=== PATIENT | male | born 1990 | race African-American/Black ===

== ENCOUNTER 2024-04-04 07:02 | Emergency (ER) | payer MEDICAID ==
[~2024-04-04] VITALS: Ht 182.9 cm; Wt 60.4 kg
[~2024-04-04 07:02] MED LIST: OMEP20TA PO; PROC10TA6 PO
[2024-04-04 07:22] VITALS: PULSE 68; RESP 16; O2SAT 96
--- NOTE | 2024-04-04 07:25 | ED.PDOC ---
History of Present Illness HPI Comments 33-year-old male presents to the ER with no prior history associated chief complaint of nausea. Patient reports he woke up this morning and felt nauseous with result and no symptoms now. Patient wanted to take the day off of work. Denies chills, fever, N/V/D, CP, SOB or other associated symptoms, modifiers, or recent injuries at this time. Chief Complaint: Nausea/Vomiting Time Seen by MD: 07:15 Reviewed Notes: Nurses Notes, Medications, Allergies Allergies: Coded Allergies: NO KNOWN ALLERGIES (Unverified , 08/09/23) Home Meds Active Scripts Omeprazole (Gnp Omeprazole) 20 Mg Tab, 1 TAB PO BID for 15 Days, #30 TAB 1 Refill Prov:SAPNA MARAVILLA MD 08/09/23 Prochlorperazine Maleate (Compazine) 10 Mg Tb, 1 TAB PO TID for 5 Days, #15 TAB 3 Refills Prov:SAPNA MARAVILLA MD 08/09/23 Information Source: Patient Mode of Arrival: Ambulatory Severity: Moderate Timing: Minutes Duration: Since onset, Minutes Prehospital treatment: None Past Medical History PAST MEDICAL HISTORY: Denies Surgical History: Denies all surgeries Family History Family History: Reviewed,noncontributory to illness, Unknown Social History Smoker: Non-Smoker Alcohol: Denies ETOH Use Drugs: Denies Drug Use Lives In: Home Constitutional: denies: chills, diaphoresis, fatigue, fever, malaise, sweats, weakness, others EENTM: denies: blurred vision, double vision, ear bleeding, ear discharge, ear drainage, ear pain, ear ringing, eye pain, eye redness, hearing loss, mouth pain, mouth swelling, nasal discharge, nose bleeding, nose congestion, nose pain, photophobia, tearing, throat pain, throat swelling, voice changes, others Respiratory: denies: cough, hemoptysis, orthopnea, SOB at rest, shortness of breath, SOB with excertion, stridor, wheezing, others Cardiovascular: denies: chest pain, dizzy spells, diaphoresis, Dyspnea on exertion, edema, irregular heart beat, left arm pain, lightheadedness, palpitations, PND, syncope, others Gastrointestinal: reports: nausea; denies: abdomen distended, abdominal pain, blood streaked bowels, constipated, diarrhea, dysphagia, difficulty swallowing, hematemesis, melena, poor appetite, poor fluid intake, rectal bleeding, rectal pain, vomiting, others Genitourinary: denies: burning, dysuria, flank pain, frequency, hematuria, in continence, penile discharge, penile sore, pain, testicle pain, testicle swelling, urgency, others Neurological: denies: dizziness, fainting, headache, left sided numbness, left sided weakness, numbness, paresthesia, pre-existing deficit, right sided numbness, right sided weakness, seizure, speech problems, tingling, tremors, weakness, others Musculoskeletal: denies: back pain, gout, joint pain, joint swelling, muscle pain, muscle stiffness, neck pain, others Integumetry: denies: bruises, change in color, change in hair/nails, dryness, laceration, lesions, lumps, rash, wounds, others Allergic/Immunocompromised: denies: Difficulty Healing, Frequent Infections, Hives, Itching, others Hematologic/Lymphatic: denies: anemia, blood clots, easy bleeding, easy bruising, swollen glands, others Endocrine: denies: excessive hunger, excessive sweating, excessive thirst, excessive urination, flushing, intolerance to cold, intolerance to heat, unexplained weight gain, unexplained weight loss, others Psychiatric: denies: anxiety, bipolar disorder, depression, hopeless, panic disorder, schizophrenia, sleepless, suicidal, others All Other Systems: Reviewed and Negative Physical Exam General Appearance: No Apparent Distress, Normal HEENT: Normal ENT Inspection, Pharynx Normal, TMs Normal Neck: Full Range of Motion, Non-Tender, Normal, Normal Inspection Respiratory: Chest Non-Tender, Lungs Clear, No Accessory Muscle Use, No Respiratory Distress, Normal Breath Sounds Cardiovascular: No Edema, No JVD, No Murmur, No Gallop, Normal Peripheral Pulses, Regular Rate/Rhythm Breast Exam: Deferred Gastrointestinal: No Organomegaly, Non Tender, No Pulsatile Mass, Normal Bowel Sounds, Soft Genitalia: Deferred Pelvic: Deferred Rectal: Deferred Extremities: No calf tenderness, Normal capillary refill, Normal inspection, Normal range of motion, Non-tender, No pedal edema Musculoskeletal : Apperance: Normal Neurologic: Alert, 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 Was a procedure done?: No Differential Dx Considerations may include: gastroenteritis,viral illness, CHS, sbo, pancreatitis X-Ray, Labs, Meds, VS Vital Signs Date Time Temp Pulse Resp B/P (MAP) Pulse Ox O2 Delivery O2 Flow Rate FiO2 04/04/24 07:22 68 16 96 Room Air* 0 21 04/04/24 07:19 98.8 68 16 121/76 (91) 96 Time of 1ST Reevaluation: 07:45 Reevaluation 1ST: Unchanged Time of 2ND Reevaluation: 07:27 Reevaluation 2ND: Resolved Patient Education/Counseling: Diagnosis, Treatment, Prognosis Family Education/Counseling: No Family Present Additional Information pt has no symptoms and would like a day off work Departure 1 Departure Time of Disposition: 07:27 Impression: Primary Impression: Nausea Disposition: 01 HOME / SELF CARE / HOMELESS Condition: Good Additional Instructions: please provide Dmitry Cooper a day off from work, due to medical reasons Discharged With: Self Critical Care Note Critical Care Time?: No Stability Stability form required: No I personally scribed for LAURA JARA MD ([email or web address]) on 04/04/24 at 07:25. Electronically submitted by Michael Edwards ([email or web address]). LAURA JARA MD Apr 04, 2024 07:25
[2024-04-04 07:35] VITALS: BP 118/50; PULSE 59; RESP 18; TEMP 98.1; O2SAT 98
== END 2024-04-04 07:39 | disposition home or self-care (01) ==
LOC: ER 07:02
DX: R11.0 Nausea (principal)

== ENCOUNTER 2024-04-12 07:59 | Emergency (ER) | payer MEDICAID ==
[~2024-04-12] VITALS: Ht 180.3 cm; Wt 60.0 kg
[2024-04-12 08:16] VITALS: BP 111/61; PULSE 54; RESP 16; TEMP 97.6; O2SAT 99
[2024-04-12] MEDS ORDERED: LORA-1126 PO (08:22)
[2024-04-12] MEDS ORDERED: PROM1SOL4 PO (08:22)
[2024-04-12] MEDS ORDERED: ONDA-155 PO (08:22)
--- NOTE | 2024-04-12 08:22 | ED.PDOC ---
SOB-HPI HPI Comments 33-year-old male with no MHx presents with a chief complaint of URI symptoms x1 day. Complains of nonproductive cough nasal congestion and intermittent nausea x1 day. No sick contacts. Not taking medications for the symptoms listed above. Denies chest pain shortness of breath diaphoresis Chief Complaint: Flu like Time Seen by MD: 08:06 Primary Care Provider: UNKNOWN Reviewed notes: Nurses Notes, Medications, Allergies Information Source: Patient Mode of Arrival: Ambulatory Past Medical History PAST MEDICAL HISTORY: Denies Surgical History: Denies all surgeries Family History Family History: Reviewed,noncontributory to illness, Unknown Social History Smoker: Non-Smoker Alcohol: Denies ETOH Use Drugs: Denies Drug Use Lives In: Home All Other Systems: Reviewed and Negative (Per HPI) Physical Exam General Appearance: No Apparent Distress, Normal HEENT: Head (Normocephalic atraumatic), Normal ENT Inspection, Pharynx Normal, TMs Normal Neck: Full Range of Motion, Non-Tender, Normal, Normal Inspection Respiratory: Chest Non-Tender, Lungs Clear, No Accessory Muscle Use, No Respiratory Distress, Normal Breath Sounds Cardiovascular: No Edema, No JVD, No Murmur, No Gallop, Normal Peripheral Pulses, Regular Rate/Rhythm Breast Exam: Deferred Gastrointestinal: No Organomegaly, Non Tender, No Pulsatile Mass, Normal Bowel Sounds, Soft Genitalia: Deferred Pelvic: Deferred Rectal: Deferred Extremities: No calf tenderness, Normal capillary refill, Normal inspection, Normal range of motion, Non-tender, No pedal edema Musculoskeletal : Apperance: Normal Neurologic: Alert, 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 Was a procedure done?: No Differential Dx Differential Diagnosis: Bronchitis X-Ray, Labs, Meds, VS Vital Signs Date Time Temp Pulse Resp B/P (MAP) Pulse Ox O2 Delivery O2 Flow Rate FiO2 04/12/24 08:16 97.6 54 16 111/61 (78) 99 97.6 04/12/24 08:16 54 16 99 Room Air 04/12/24 08:08 97.6 54 16 111/61 (78) 99 X-Ray, Labs, Meds, VS Comment History and physical consistent of URI Take medication as prescribed No concerns for pneumonia at this time. No risk factors. No indication for antibiotics Discussed that cough can linger up to 6 weeks after viral URI ED precautions if cough does not alleviate or if cough worsens Supportive care and return precautions discussed Counseled viral infection and explained that antibiotics would not be helpful in resolving the illness sooner. Recommended vitamin C, rest, handwashing, and symptomatic care. Expect 2-week course with possibly of cough lingering up to 6 weeks. Nonpharmacological remedies for fluids has been recommended as well Patient is stable for discharge at this time. External notes reviewed. Test results and diagnostic imaging interpreted. All diagnostic findings, discharge care, education and instructions provided Follow-up with PCP in 2 to 3 days Patient verbalized understanding and agreed to treatment plan Vital signs stable, afebrile, no acute distress noted Patient ambulatory with strong steady gait Advised to return precautions for any new or worsening symptoms, return to ER immediately for re-evaluation Patient is aware that the purpose of this visit was for an acute medical emergency requiring emergent stabilization. Chronic conditions, including malignancies have not been ruled out. Patient is instructed to follow up with PCP as directed and discharge instructions for continued care and workup. If unable to arrange follow-up, patient is to return to the emergency department for reassessment. Patient (parent or legal guardian if applicable) was given verbal and written discharge instructions and acknowledges understanding. Time of 1ST Reevaluation: 08:20 Reevaluation 1ST: Improved Patient Education/Counseling: Diagnosis, Treatment Family Education/Counseling: Diagnosis, Treatment Departure 1 Departure Time of Disposition: 08:21 Impression: Primary Impression: Viral syndrome Disposition: 01 HOME / SELF CARE / HOMELESS Condition: Stable e-Prescriptions Ondansetron HCl (Ondansetron) 4 Mg Tab 4 MG PO DAILYP PRN for 3 Days, #3 TAB 0 Refills Prov: BLANCA SHERIDAN [employer] 04/12/24 Loratadine (Loratadine) 10 Mg Tab 10 MG PO DAILY for 14 Days, #14 TAB 0 Refills Prov: BLANCA SHERIDAN NP 04/12/24 Promethazine-Dm (Promethazine Dm 6.25-15 mg/5Ml) 1 Georgie Georgie 5 ML PO TID for 10 Days, #150 ML 0 Refills Prov: BLANCA SHERIDAN [employer] 04/12/24 Discharged With: Self Critical Care Note Critical Care Time?: No Stability Stability form required: No Heart Score Heart Score: Heart Score Response (Comments) Value History N/A 0 EKG N/A 0 Age N/A 0 Risk Factors N/A 0 Troponin N/A 0 Total 0 BLANCA SHERIDAN NP Apr 12, 2024 08:22
== END 2024-04-12 08:23 | disposition home or self-care (01) ==
LOC: ER 07:59
DX: B34.9 Viral infection, unspecified (principal)

== ENCOUNTER 2024-05-22 23:34 | Emergency (ER) | payer MEDICAID ==
[~2024-05-22] VITALS: Ht 180.3 cm; Wt 59.9 kg
[~2024-05-22 23:34] MED LIST changes: +LORA-1126 PO; +ONDA-155 PO; +PROM1SOL4 PO
[2024-05-22 23:42] VITALS: BP 122/75; PULSE 61; RESP 20; O2SAT 95
--- NOTE | 2024-05-22 23:55 | ED.PDOC ---
Eye-HPI HPI Comments 34-year-old male who came to ER for eye problems. States he was driving y esterday, when he felt something flew/ enter his left eye. Since then, he has been having pain, irritation, redness and swelling of the left eye. Patient denies any change in vision. Vital signs were stable on arrival. Chief Complaint: Eye Problem Time Seen by MD: 23:54 Primary Care Provider: UNKNOWN Reviewed Notes: Nurses Notes Allergies: Coded Allergies: NO KNOWN ALLERGIES (Unverified , 08/09/23) Home Meds Active Scripts Ondansetron HCl (Ondansetron) 4 Mg Tab, 4 MG PO DAILYP PRN for 3 Days, #3 TAB 0 Refills Prov:BLANCA SHERIDAN [employer]IVER 04/12/24 Loratadine (Loratadine) 10 Mg Tab, 10 MG PO DAILY for 14 Days, #14 TAB 0 Refills Prov:BLANCA SHERIDAN NP 04/12/24 Promethazine-Dm (Promethazine Dm 6.25-15 mg/5Ml) 1 Georgie Georgie, 5 ML PO TID for 10 Days, #150 ML 0 Refills Prov:BLANCA SHERIDAN NP 04/12/24 Omeprazole (Gnp Omeprazole) 20 Mg Tab, 1 TAB PO BID for 15 Days, #30 TAB 1 Refill Prov:SAPNA MARAVILLA MD 08/09/23 Prochlorperazine Maleate (Compazine) 10 Mg Tb, 1 TAB PO TID for 5 Days, #15 TAB 3 Refills Prov:SAPNA MARAVILLA MD 08/09/23 Information Source: Patient Mode of Arrival: Ambulatory Timing: Hours Duration: Since onset Quality: Pain, Red, FB sensation Eye Location: Left Lids: Swelling Onset: FB Exposure Associated signs and symptoms: Discharge, Tearing Past Medical History PAST MEDICAL HISTORY: Denies Surgical History: Denies all surgeries Family History Family History: Reviewed,noncontributory to illness, Unknown Social History Smoker: Non-Smoker Alcohol: Denies ETOH Use Drugs: Marijuana Lives In: Home Constitutional: denies: chills, diaphoresis, fatigue, fever, malaise, sweats, weakness, others EENTM: reports: eye pain (left), eye redness (left); denies: blurred vision, double vision, ear bleeding, ear discharge, ear drainage, ear pain, ear ringing, hearing loss, mouth pain, mouth swelling, nasal discharge, nose bleeding, nose congestion, nose pain, photophobia, tearing, throat pain, throat swelling, voice changes, others Respiratory: denies: cough, hemoptysis, orthopnea, SOB at rest, shortness of breath, SOB with excertion, stridor, wheezing, others Cardiovascular: denies: chest pain, dizzy spells, diaphoresis, Dyspnea on exertion, edema, irregular heart beat, left arm pain, lightheadedness, palpitations, PND, syncope, others Gastrointestinal: denies: abdomen distended, abdominal pain, blood streaked bowels, constipated, diarrhea, dysphagia, difficulty swallowing, hematemesis, melena, nausea, poor appetite, poor fluid intake, rectal bleeding, rectal pain, vomiting, others Genitourinary: denies: burning, dysuria, flank pain, frequency, hematuria, incontinence, penile discharge, penile sore, pain, testicle pain, testicle swelling, urgency, others Neurological: denies: dizziness, fainting, headache, left sided numbness, left sided weakness, numbness, paresthesia, pre-existing deficit, right sided numbness, right sided weakness, seizure, speech problems, tingling, tremors, weakness, others Musculoskeletal: denies: back pain, gout, joint pain, joint swelling, muscle pain, muscle stiffness, neck pain, others Integumetry: denies: bruises, change in color, change in hair/nails, dryness, laceration, lesions, lumps, rash, wounds, others Allergic/Immunocompromised: denies: Difficulty Healing, Frequent Infections, Hives, Itching, others Hematologic/Lymphatic: denies: anemia, blood clots, easy bleeding, easy bruising, swollen glands, others Endocrine: denies: excessive hunger, excessive sweating, excessive thirst, excessive urination, flushing, intolerance to cold, intolerance to heat, unexplained weight gain, unexplained weight loss, others Psychiatric: denies: anxiety, bipolar disorder, depression, hopeless, panic di sorder, schizophrenia, sleepless, suicidal, others Physical Exam General Appearance: Mild Distress (Moderate distress due to left eye concerns.), Normal HEENT: Pharynx Normal, TMs Normal, Other (Fluorescein stain of left eye revealed a inferior corneal abrasion. Mild scleral injection noted. Mild lower lid swelling due to manual stimulation noted.) Neck: Full Range of Motion, Non-Tender, Normal, Normal Inspection Respiratory: Chest Non-Tender, Lungs Clear, No Accessory Muscle Use, No Respiratory Distress, Normal Breath Sounds Cardiovascular: No Edema, No JVD, No Murmur, No Gallop, Normal Peripheral Pulses, Regular Rate/Rhythm Breast Exam: Deferred Gastrointestinal: No Organomegaly, Non Tender, No Pulsatile Mass, Normal Bowel Sounds, Soft Genitalia: Deferred Pelvic: Deferred Rectal: Deferred Extremities: No calf tenderness, Normal capillary refill, Normal inspection, Normal range of motion, Non-tender, No pedal edema Musculoskeletal : Apperance: Normal Neurologic: Alert, No Motor Deficits, Normal Affect, Normal Mood, No Sensory Deficits Cerebellar Function: Normal Reflexes: Normal Skin: Dry, Normal Color, Warm Lymphatic: No Adenopathy Was a procedure done? Was a procedure done?: No EENT DIFF Eye: Corneal Abrasion, Foreign Body-Conjunctiva, Foreign Body-Corneal, Foreign Body-Lid X-Ray, Labs, Meds, VS Vital Signs Date Time Temp Pulse Resp B/P (MAP) Pulse Ox O2 Delivery O2 Flow Rate FiO2 05/22/24 23:42 97.9 61 20 122/75 (91) 95 X-Ray, Labs, Meds, VS Comment Tetracaine was utilized for left eye anesthesia. Fluorescein stain revealed a mild corneal abrasion to the inferior aspect of the left globe. Patient states he has antibiotic eyedrops available at home and therefore, advised patient to use his drops two to 3 times a day for the next 4-5 days. Advised patient utilize Tylenol and or Motrin as needed for pain relief. Time of 1ST Reevaluation: 01:05 Reevaluation 1ST: Improved Consultation: PCP Patient Education/Counseling: Diagnosis, Treatment Family Education/Counseling: Diagnosis, Treatment, No Family Present Departure 1 Departure Time of Disposition: 01:06 Impression: Primary Impression: Left corneal abrasion Disposition: HOME / SELF CARE / HOMELESS Condition: Stable Additional Instructions: Advised patient to utilize his antibiotic eyedrops as directed. Pain medication as needed. I will provide the patient with a script for additional eye drops as needed. e-Prescriptions Ibuprofen Micronized (Ibuprofen) 800 Mg Tab 800 MG PO Q8HP PRN, #15 TAB Prov: LATHA JOLLY PAC 05/23/24 Azithromycin (Ophth) (Azasite) 1 % Georgie 1 DROP LEFTEYE BID for 3 Days, #2.5 ML 0 Refills Prov: LATHA JOLLY PAC 05/23/24 Discharged With: Self, Friend Critical Care Note Critical Care Time?: No Stability Stability form required: No Heart Score Heart Score: Heart Score Response (Comments) Value History N/A 0 EKG N/A 0 Age N/A 0 Risk Factors N/A 0 Troponin N/A 0 Total 0 I personally scribed for LATHA JOLLY PAC ([email or web address]) on 05/22/24 at 23:54. Electronically submitted by Leandro Schafer ([email or web address]). LATHA JOLLY PAC May 22, 2024 23:54
[2024-05-23] MEDS ORDERED: AZIT4SOL LEFTEYE (01:08)
[2024-05-23] MEDS ORDERED: IBUP-1455 PO (01:08)
[2024-05-23] MEDS: FLUORESCEIN SOD OPTH TEST STRIP ONE (02:14)
[2024-05-23] MEDS: FLUORESCEIN SOD OPTH TEST STRIP LEFTEYE ONE (02:24)
== END 2024-05-23 02:25 | disposition home or self-care (01) ==
LOC: ER 23:34
DX: S05.02XA Injury of conjunctiva and corneal abrasion without foreign body, left eye, initial encounter (principal); X58.XXXA Exposure to other specified factors, initial encounter; Y93.89 Activity, other specified; Y92.89 Other specified places as the place of occurrence of the external cause; Y99.8 Other external cause status